=== PATIENT | male | born 1995 | race Two or more races ===

== ENCOUNTER 2022-06-21 09:08 | Emergency (ER) | payer SELFPAY ==
[~2022-06-21] VITALS: Ht 185.4 cm; Wt 152.0 kg
[2022-06-21 10:38] VITALS: BP 153/100
[2022-06-21] MEDS ORDERED: CLIN300C8 PO (11:02)
[2022-06-21] MEDS ORDERED: IBUP800T27 PO (11:02)
== END 2022-06-21 11:04 | disposition home or self-care (01) ==
LOC: ER 09:08
DX: K04.7 Periapical abscess without sinus (principal)
CPT/HCPCS: 99283; J7030